=== PATIENT | female | born 1985 | race Caucasian/White ===

== ENCOUNTER 2020-12-25 06:20 | Inpatient (IN) | payer BC ==
[~2020-12-25] VITALS: Ht 165.1 cm; Wt 81.2 kg
[~2020-12-25 06:20] MED LIST: BISACODYL10 MG PR; COLACE 100MG C100 MG PO; GAS-X80 MG PO; IBUPROFEN800 MG PO; NORCO 5-325 TA1 EACH PO
[2020-12-25 08:46] LABS: HEMOGLOBIN 11.9 gm/dl (12.3-15.3); RED BLOOD COUNT 3.7 M/UL (4.00-5.10); WHITE BLOOD COUNT 8.8 K/UL (4.5-11.0)
[2020-12-25] MEDS ORDERED: IBUPROFEN600 MG PO (14:37)
[2020-12-25] MEDS ORDERED: COLACE100 MG PO (14:37)
[2020-12-26 07:00] LABS: HEMOGLOBIN 10.2 gm/dl (12.3-15.3)
[2020-12-26] MEDS ORDERED: LEXAPRO TAB 1010 MG PO (08:48)
[2020-12-26] MEDS ORDERED: HYDROCODON-ACE1 EAC4 PO (08:48)
== END 2020-12-26 17:48 | disposition home or self-care (01) | DRG 806 ==
LOC: OB 06:20
PROVIDERS: Obstetrics & Gynecology; ADMIT Obstetrics & Gynecology
PROC: 10E0XZZ Delivery of Products of Conception, External Approach (ICD-10-PCS; principal; 2020-12-25)
PROC: 10907ZC Drainage of Amniotic Fluid, Therapeutic from Products of Conception, Via Natural or Artificial Opening (ICD-10-PCS; 2020-12-25)
PROC: 3E033VJ Introduction of Other Hormone into Peripheral Vein, Percutaneous Approach (ICD-10-PCS; 2020-12-25)
PROC: 0UQMXZZ Repair Vulva, External Approach (ICD-10-PCS; 2020-12-25)
PROC: 3E0234Z Introduction of Serum, Toxoid and Vaccine into Muscle, Percutaneous Approach (ICD-10-PCS; 2020-12-26)
PROC: 3E0234Z Introduction of Serum, Toxoid and Vaccine into Muscle, Percutaneous Approach (ICD-10-PCS; 2020-12-26)
DX: O99.02 Anemia complicating childbirth (principal); O36.0930 Maternal care for other rhesus isoimmunization, third trimester, not applicable or unspecified; Z37.0 Single live birth; D64.9 Anemia, unspecified; Z20.822 Contact with and (suspected) exposure to COVID-19; O69.81X0 Labor and delivery complicated by cord around neck, without compression, not applicable or unspecified; O70.0 First degree perineal laceration during delivery; Z23 Encounter for immunization; Z3A.39 39 weeks gestation of pregnancy
CPT/HCPCS: 36415; 51702; 81001; 82800; 85014; 85018; 85025; 85461; 86850; 86900; 86901; 90715; J0595; J2405; J2590; J2790; J2795; J7120; U0003